=== PATIENT | female | born 1960 | race Caucasian/White ===

== ENCOUNTER 2019-08-31 22:02 | Emergency (ER) | payer SELFPAY ==
--- NOTE | 2019-08-31 22:04 | ED ---
Upper Extremity Pain - HPI Summary HPI Summary: Patient complains of left forearm pain status post mechanical fall from a ladder tonight. Patient was three quarters of the way up a six-foot ladder when she lost her balance. Denies any other pain, injury or symptoms including head injury, LOC, headache, and/V, dizziness. Patient ambulatory. No anti- coag. - History of Current Complaint Stated Complaint: LT ARM INJ FROM FALL Hx Obtained From: Patient Mechanism Of Injury: Fall From Height Of: Onset/Duration: Started Minutes Ago Timing: Constant Severity Initially: Moderate Severity Currently: Moderate Pain Location: Forearm Character: Aching, Throbbing Aggravating Factor(s): Movement Alleviating Factor(s): Rest Associated Signs & Symptoms: Positive: Swelling - Allergies/Home Medications Allergies/Adverse Reactions: Allergies Allergy/AdvReac Type Severity Reaction Status Date / Time No Known Allergies Allergy Verified 08/31/19 22:04 Home Medications: Home Medications HYDROcodone/ACETAMIN 5-325 MG* [[place] 5-325 TAB*] 1 tab PO Q6H PRN 2 Days #8 tab MDD 4 tabs 08/31/19 [Rx] PMH/Surg Hx/FS Hx/Imm Hx Endocrine/Hematology History: Denies: Hx Anticoagulant Therapy Cardiovascular History: Denies: Hx Pacemaker/ICD History: Denies: Hx Dialysis Sensory History: Denies: Hx Eye Prosthesis Opthamlomology History: Denies: Hx Legally Blind EENT History: Denies: Hx Deafness Psychiatric History: Reports: Hx Anxiety - possibly -- "stress": in her life - Family History Known Family History: Positive: Non-Contributory - Social History Alcohol Use: Weekly Substance Use Type: Reports: None Smoking Status (MU): Former Smoker Review of Systems Constitutional: Negative Eyes: Negative ENT: Negative Cardiovascular: Negative Respiratory: Negative Gastrointestinal: Negative Genitourinary: Negative Musculoskeletal: Other Skin: Negative Neurological/Mental Status: Negative Psychological: Normal All Other Systems Reviewed And Are Negative: Yes Physical Exam - Summary Physical Exam Summary: Obvious deformity to left forearm proximal to wrist. PMS intact distally. No pain with palpation of left shoulder, left elbow, left hand. No evidence of trauma to mouth, face, head. Full range of motion of jaw or neck without pain. Patient moves upper extremities normally without pain. Moves bilateral lower extremities normally without pain. No pain with palpation of neck, back, chest , abdomen. Triage Information Reviewed: Yes Vital Signs Reviewed: Yes Appearance: Positive: Well-Appearing Skin: Positive: Warm Head/Face: Positive: Normal Head/Face Inspection Eyes: Positive: Normal Dental: Negative: Dental Fracture @, Bleeding Neck: Positive: Supple Respiratory/Lung Sounds: Positive: Clear to Auscultation Cardiovascular: Positive: Normal Abdomen Description: Positive: Nontender Musculoskeletal: Positive: Normal Neurological: Positive: Normal Psychiatric: Positive: Normal AVPU Assessment: Alert - [place] Coma Scale Best Eye Response: 4 - Spontaneous Best Motor Response: 6 - Obeys Commands Best Verbal Response: 5 - Oriented Coma Scale Total: 15 Procedures - Sedation Patient Received Moderate/Deep Sedation with Procedure: No - Splinting 1 Location: left forearm Hand-Made Type: orthoglass Splint: sugar-tong Pre-Proc Neuro Vasc Exam: normal Post-Proc Neuro Vasc Exam: normal Course/Dx - Course Course Of Treatment: Patient complains of left forearm pain status post mechanical fall from a ladder tonight. Patient was three quarters of the way up a six-foot ladder when she lost her balance. Denies any other pain, injury or symptoms including head injury, LOC, headache, N/V, dizziness. Patient ambulatory. No anti-coag. Vital signs within normal limits. X-ray positive for radial and ulnar shaft fracture. Patient splinted with sugar tong. Discussed patient with orthopedics Dr. Castillo who recommended discharge and they will follow up with patient tomorrow morning for further evaluation. - Diagnoses Provider Diagnoses: Fracture of radial shaft, with ulna, left, closed Discharge ED - Sign-Out/Discharge Documenting (check all that apply): Patient Departure - Discharge Plan Condition: Stable Disposition: HOME Prescriptions: HYDROcodone/ACETAMIN 5-325 MG* [[place] 5-325 TAB*] 1 tab PO Q6H PRN 2 Days #8 tab MDD 4 tabs PRN Reason: Pain Patient Education Materials: Arm Fracture in Adults (ED) Referrals: No Primary Care Phys,NOPCP [Primary Care Provider] - Steven Castillo MD [Medical Doctor] - Additional Instructions: Follow-up with clinic of orthopedics Dr. Castillo tomorrow morning for further evaluation of left arm fracture. - Billing Disposition and Condition Condition: STABLE Disposition: Home
[2019-08-31] MEDS ORDERED: HYDROcodone/ACETAMIN 5-325 MG* 1 TAB PO ONE (22:20)
[2019-08-31] MEDS ORDERED: Lidocaine 1% MPF ** 5 ML VIAL INJ ONE (22:21)
[2019-08-31] MEDS ORDERED: Bupivacaine 0.25% SDV PF* 10 ML VIAL INJ ONE (22:22)
[2019-08-31] MEDS ORDERED: Bupivacaine 0.25% SDV* 30 ML INJ ONE (22:22)
[2019-08-31] MEDS ORDERED: Morphine 4 MG/ML VIAL (1 ml) 4 MG/ML VIAL IM ONE (23:35)
[2019-08-31] MEDS ORDERED: Ondansetron INJ* 2 MG/ML VIAL IV ONE (23:39)
[2019-08-31] MEDS ORDERED: Morphine 4 MG/ML VIAL (1 ml) 4 MG/ML VIAL IV ONE (23:39)
[2019-08-31] MEDS ORDERED: O ndansetron ODT 4MG 5TAB PRPK 4 MG PAK PO ONE (23:58)
[2019-09-01 00:46] VITALS: BP 141/92
== END 2019-09-01 00:46 | disposition home or self-care (01) ==
LOC: ED 22:02
DX: S52.302A Unspecified fracture of shaft of left radius, initial encounter for closed fracture (principal); S52.202A Unspecified fracture of shaft of left ulna, initial encounter for closed fracture; W11.XXXA Fall on and from ladder, initial encounter; Y92.9 Unspecified place or not applicable
CPT/HCPCS: 96374; 96375; 99283; A9270-GY; J2270; J2405; J3490

== ENCOUNTER 2019-09-05 06:19 | Day surgery (SDC) | payer SELFPAY ==
--- NOTE | 2019-09-01 15:48 | HP ---
PREOPERATIVE HISTORY AND PHYSICAL: DATE OF SURGERY/ADMISSION: 09/04/19 - [facility] DATE OF OFFICE VISIT/ENCOUNTER: 09/01/19 ATTENDING SURGEON: Steven Castillo MD * (DICTATED BY LEANDRA MASTERSON) PROCEDURE: Open reduction internal fixation, left distal forearm both bone fracture. HISTORY OF PRESENT ILLNESS: This is a 59-year-old female who sustained injury to her left forearm on 08/31/19. She was on a ladder about 4 feet off of the ground as she was trying to climb up onto her roof to help her grandchildren get down. The children were up there trying to get toys off of the roof. Unfortunately, she fell off of the ladder and landed on an outstretched left hand. She was transported to the [facility] Emergency Department by her brother. X-ray showed a left both bone forearm fracture, displaced and foreshortened. Manual reduction was performed which minimally improved the alignment of the bones. She as placed in a sugar-tong splint. She was given a prescription for [place], she is yet to pick that up. She has been using Advil at this time for her pain. She is left hand dominant. 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 Dr. Castillo is recommending surgical intervention at this time for best outcome and the patient has consented to proceed. PAST MEDICAL HISTORY: Unremarkable. PAST SURGICAL HISTORY: None. MEDICATIONS: None. ALLERGIES: No known drug allergies. FAMILY MEDICAL HISTORY: Diabetes mellitus, heart disease, hypertension. 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 She lives at home with 4 grandchildren. Her brother lives nearby. She denies tobacco use. She does occasionally smoke marijuana and drinks alcohol on occasion. REVIEW OF SYSTEMS: Negative for general, cephalic, cardiovascular, respiratory , GI, , other musculoskeletal, integumentary, endocrine, neurologic, and hematologic symptoms. Infectious Disease: Negative for MRSA, hepatitis C, HIV. PHYSICAL EXAMINATION GENERAL: Well-developed, well-nourished 59-year-old female, in no acute distress. VITAL SIGNS: Height 5 feet 2 inches, weight 143 pounds, pulse rate 74, blood pressure 132/74. HEENT: Normocephalic and atraumatic. Pupils are equal, round, and reactive to light and accommodation. Extraocular movements are intact. Throat is clear. NECK: Supple. No palpable lymph nodes. PULMONARY: Lungs are clear to auscultation bilaterally. No wheezes, rales, or rhonchi. CARDIOVASCULAR: Regular rate and rhythm. S1 and S2. No murmurs, rubs, or gallops. No edema. ABDOMEN: Positive bowel sounds. Soft and nontender. NEUROLOGIC: Alert and oriented x3. Cranial nerves II through XII are intact. Sensation is intact to light touch. MUSCULOSKELETAL: On exam of her left upper extremity compared to her right, her left arm is maintained in a sugar-tong splint that appears to be fitting well. Her fingers are mildly to moderately swollen but she has good motion in her fingers and her thumb. Capillary refill is brisk. Sensation is intact. Fingers and thumb are of appropriate temperature upon palpation. IMAGING STUDIES: X-rays of the left forearm show transversely oriented fractures at the distal shaft of the radius and ulna. The distal fracture fragments are dorsally displaced and foreshortened. ASSESSMENT: Left forearm both bone displaced and foreshortened fractures. PLAN/RECOMMENDATIONS: The patient is scheduled to undergo an open reduction internal fixation left distal forearm both bone fracture with Dr. Castillo on . She will return to the office 10 days postop for followup and suture removal. Risks and benefits of surgery were discussed with the patient today and she consented to proceed. She has at this time pain medication as prescribed by the emergency room which she will use along with Advil for pain management. She will be seen back in the office 10 to 14 days postop for followup and suture removal. LEANDRA MASTERSON [id number]/[facility] #: [id number] [place]
[~2019-09-05 06:19] MED LIST: Acetaminophen TAB* 325 MG PO ONE; Buffered Lidocaine 1% SYRIN* 1 ML/SYRINGE INTRADERM ONE; Lactated Ringers 1000 ML Bag* 1,000 ML IV SCH
[2019-09-05] MEDS ORDERED: ceFAZolin 2 GM PREMIX in ORs 2 GM/50 ML BAG ONE (06:25)
[2019-09-05] MEDS ORDERED: Acetaminophen TAB* 325 MG ONE (06:39)
[2019-09-05] MEDS ORDERED: fentaNYL* 50 MCG/ML 5 ML VIAL (250 MCG VIAL) ONE (07:11)
[2019-09-05] MEDS ORDERED: Midazolam* 1 MG/ML 2 ML VIAL (2 MG) ONE ×2 (07:16→08:17)
[2019-09-05] MEDS ORDERED: Propofol* 500 MG/50 ML BTL ONE (07:21)
[2019-09-05] MEDS ORDERED: Lidocaine 2% PF * 5 ML VIAL ONE ×2 (07:21→07:28)
[2019-09-05] MEDS ORDERED: ROPIVACAINE 5 MG/ML 30 ML BTL (0.5%) ONE (07:23)
[2019-09-05] MEDS ORDERED: Bupivacaine 0.5% SDV PF* 30ML VIAL ONE (08:21)
[2019-09-05] MEDS ORDERED: Ketorolac INJ* 30 MG/ML 1 ML VIAL IV PRN (09:49)
[2019-09-05] MEDS ORDERED: Naloxone* 0.4 MG/ML 1 ML VIAL IV PRN (09:49)
[2019-09-05] MEDS ORDERED: PROCHLORPERAZINE INJ 5 MG/ML 2 ML VIAL IV PRN (09:49)
[2019-09-05] MEDS ORDERED: oxyCODONE TAB* 5 MG TAB PO PRN (09:49)
[2019-09-05] MEDS ORDERED: diPHENhydraMINE IV* 50 MG/ML 1 ml VIAL (BENADRYL) IV PRN (09:49)
[2019-09-05] MEDS ORDERED: Ketorolac INJ* 30 MG/ML 1 ML VIAL ONE (10:05)
--- NOTE | 2019-09-05 10:18 | OP ---
DATE OF OPERATION: 09/05/19 - [facility] DATE OF : 56 SURGEON: Dr. Mason DIRECTOR SUPPLIER QUALITY: LEANDRA Roque ANESTHESIA: Block. PRE-OP DIAGNOSIS: Both bones forearm fracture of the left. POST-OP DIAGNOSIS: Both bones forearm fracture of the left. OPERATIVE PROCEDURE: Open reduction and internal fixation left both bones forearm fracture. INDICATION FOR PROCEDURE: Stacie is a 59-year-old female who fell off a ladder onto her outstretched left hand. She suffered a both bones fracture of her forearm. There was a very tiny puncture wound. She had attempted reduction at the emergency department, but has and presents for ORIF of the left forearm. ESTIMATED BLOOD LOSS: Zero. TOURNIQUET TIME: About 1 hour. DESCRIPTION OF PROCEDURE: The patient was brought to the operating room, was given a block anesthetic and a sedation anesthetic and placed in supine position on the operating table with a tourniquet around her left upper extremity. The skin of her left upper extremity was prepped and draped in usual sterile fashion. The upper extremity was exsanguinated and the tourniquet elevated to 250 mmHg. A longitudinal incision was made along the subcutaneous border of the ulna and the ulnar fracture fragments were reduced with reduction clamps, there was very slight comminution at the fracture site. A 7 hole plate from the mini modular set was secured with 3 distal and 3 proximal screws. Its position and the position of the fracture fragment was checked on the C-arm in the AP and lateral views and found to be anatomic. A second longitudinal incision was made on the volar radial aspect of the forearm and we dissected down to the FCR tendon sheath. The sheath was incised longitudinally and the muscle and tendons of the FCR and FPL were retracted ulnarly. The fracture fragments were reduced and secured with a 3.5 LCDC plate with 3 distal and 3 proximal screws. There was no comminution at the fracture and it was basically a transverse fracture. The incisions were copiously irrigated with saline and then the fascia was closed with 2-0 Vicryl suture. Subcutaneous tissue was closed with 2-0 Vicryl and the skin with 4-0 nylon suture. The wound was dressed with Xeroform, 4x4, Webril and a volar splint. The patient tolerated the procedure well and was brought to the recovery room in good condition. [id number]/[facility] #: [id number] [place]
[2019-09-05] MEDS ORDERED: DiMENhydriNATE IV* 50 MG/ML VIAL ONE (10:34)
[2019-09-05] MEDS ORDERED: PROCHLORPERAZINE INJ 5 MG/ML 2 ML VIAL ONE (10:36)
[2019-09-05 10:49] VITALS: BP 124/78
== END 2019-09-05 11:10 | disposition home or self-care (01) ==
LOC: OREAST 06:19
PROVIDERS: ATTEND Orthopaedic Surgery
DX: S52.392A Other fracture of shaft of radius, left arm, initial encounter for closed fracture (principal); S52.292A Other fracture of shaft of left ulna, initial encounter for closed fracture; W11.XXXA Fall on and from ladder, initial encounter; Y92.008 Other place in unspecified non-institutional (private) residence as the place of occurrence of the external cause
CPT/HCPCS: 76000; A9270-GY; C1713; C1776; J0690; J0780; J1240; J1885; J2250; J2704; J2795; J3010; J3490